=== PATIENT | female | born 1960 | race Caucasian/White ===

== ENCOUNTER 2016-10-24 09:00 | Inpatient (IN) | payer MEDICAID ==
[~2016-10-24] VITALS: Ht 165.1 cm; Wt 47.7 kg
[~2016-10-24 09:00] MED LIST: CHOL500021 OR; CLON2TAB PO; SERT25TA84 PO
[2016-10-24] MEDS ORDERED: SODIUM CHLORIDE 0.9% 1,000 ML IV ONE (10:05)
[2016-10-24] MEDS ORDERED: NALBUPHINE HCL 10 MG/1ml INJECTION IV ONE ×2 (10:15→12:00)
[2016-10-24] MEDS ORDERED: ONDANSETRON HCL 4 MG/2 ML VIAL IV ONE (10:15)
[2016-10-24 10:46] LABS: Urine Bilirubin Negative (Negative); Urine Blood TRACE /uL (Negative); Urine Color Yellow (Yellow); Urine Glucose Normal (Normal); Urine Ketone Negative (Negative); Urine Mucus FEW (None Seen); Urine Nitrite Negative (Negative); Urine RBC 2 /hpf (0 - 4); Urine Squamous Epithelial Cell MOD /hpf (<5); Urine pH 5.5 (5.0-8.0)
[2016-10-24 11:15] LABS: Hematocrit 39.4 % (36.0-46.0); Hemoglobin 13.4 g/dL (12.2-16.2); Mean Corpuscular Hemoglobin 30.8 pg (28.0-32.0); Mean Corpuscular Hgb Conc. 33.9 g/dL (32.0-36.0); Mean Corpuscular Volume 90.8 fL (80.0-100.0); Mean Platelet Volume 7.6 fL (7.4-10.4); Platelet Count (auto) 259 10^3/uL (140-450); Red Cell Distribution Width 16.5 % (11.6-16.0); SUSPECT VIEW TRANSMISSION; White Blood Cell 5.4 10^3/uL (4.4-10.8)
[2016-10-24 11:25] LABS: Metamyelocytes % 0; Myelocytes % 0; Promyelocytes % 0; Reactive Lymphocytes 0
[2016-10-24 11:40] LABS: B-Type Natriuretic Peptide 15.1 pg/mL (0-100)
[2016-10-24 11:42] LABS: Albumin 3.1 g/dL (3.4-5.0); Alkaline Phosphatase 93 U/L (45-117); Anion Gap 10 (5-15); Aspartate Aminotransferase 20 U/L (15-37); BUN/Creatinine Ratio 13.5; Bilirubin, Total 0.3 mg/dL (0.2-1.0); Blood Urea Nitrogen 12 mg/dL (7-18); Calcium 8.5 mg/dL (8.5-10.1); Carbon Dioxide 26 mmol/L (21-32); Chloride 104 mmol/L (98-107); GFR African American 85 mL/min; GFR Non-African American 70 mL/min; Glucose 101 mg/dL (74-106); Potassium 3.3 mmol/L (3.5-5.1); Sodium 140 mmol/L (136-145); Total Protein 6.9 g/dL (6.4-8.2)
[2016-10-24 11:44] LABS: INR 0.94 (0.9-1.15); Partial Thromboplastin Time 27.7 sec (22.64-33.71); Prothrombin Time 10.1 sec (9.37-12.3)
[2016-10-24] MEDS ORDERED: LEVOFLOXACIN 500MG 100 ML IV ONE (11:45)
[2016-10-24 11:48] LABS: Temperature: 22.7 C (20.0-25.0)
[2016-10-24] MEDS ORDERED: TEMAZEPAM 15 MG CAP PO PRN (13:15)
[2016-10-24] MEDS ORDERED: ENOXAPARIN SOD 40 MG/0.4 ML SYRINGE SC ONE (13:15)
[2016-10-24] MEDS ORDERED: LORazepam 0.5 MG TAB PO PRN (13:15)
[2016-10-24] MEDS ORDERED: ACETAMINOPHEN 500 MG TAB PO PRN (13:15)
[2016-10-24] MEDS ORDERED: NITROGLYCERIN 0.4 MG SL TAB SL PRN (13:15)
[2016-10-24] MEDS ORDERED: PANTOPRAZOLE 40 MG TAB PO ONE (13:15)
[2016-10-24] MEDS ORDERED: cefTRIAXone 1GM/50ML D5W 50 ML IV ONE (13:15)
[2016-10-24] MEDS ORDERED: PROCHLORPERAZINE EDISYLATE 5 MG/ML 2ML VIAL IV PRN (13:15)
[2016-10-24 13:54] LABS: Platelet Estimate Adequate
[2016-10-24 13:56] LABS: Ovalocytes FEW
[2016-10-24] MEDS: SODIUM CHLORIDE 0.9% 1,000 ML IV SCH ×2 (14:03→23:20)
[2016-10-24] MEDS ORDERED: PROCHLORPERAZINE EDISYLATE 5 MG/ML 2ML VIAL IV ONE (14:15)
[2016-10-24 15:23] VITALS: BP 89/60
[2016-10-24 20:00] VITALS: BP 89/63
[2016-10-24 21:24] VITALS: BP 85/58
[2016-10-24 22:16] VITALS: BP 89/63
[2016-10-25] VITALS (7 sets, daily range): BP systolic 91–118; BP diastolic 60–73
[2016-10-25 06:10] LABS: Potassium 3.5 mmol/L (3.5-5.1)
[2016-10-25 06:20] LABS: BUN/Creatinine Ratio 15.1; Calcium 8.1 mg/dL (8.5-10.1); Magnesium 1.8 mg/dL (1.6-2.6)
[2016-10-25] MEDS: SODIUM CHLORIDE 0.9% 1,000 ML IV SCH ×3 (09:34→22:31)
[2016-10-25] MEDS: cefTRIAXone 1GM/50ML D5W 50 ML IV SCH (09:34)
[2016-10-25] MEDS: PANTOPRAZOLE 40 MG TAB PO SCH (09:34)
[2016-10-25] MEDS ORDERED: ENOXAPARIN SOD 40 MG/0.4 ML SYRINGE SC SCH (10:00)
[2016-10-25] MEDS: HYDROcodone-ACET 5/325MG TAB PO PRN ×2 (14:51→20:40)
[2016-10-25] MEDS ORDERED: ALBU0.084 IN (15:34)
[2016-10-25] MEDS ORDERED: IPRASOL39 NEB ×2 (15:34→15:51)
[2016-10-25] MEDS ORDERED: ALBUAER3 IN (15:51)
[2016-10-25] MEDS ORDERED: ALBU1.257 NEB (15:51)
[2016-10-25] MEDS ORDERED: LEVO500T3 PO (15:51)
[2016-10-25] MEDS: BOOST PLUS 8 ounce PO SCH ×2 (18:00→22:19)
[2016-10-25] MEDS ORDERED: predniSONE 20 MG TAB PO ONE (19:00)
[2016-10-25] MEDS ORDERED: ONDANSETRON HCL 4 MG/2 ML VIAL IV ONE (20:00)
[2016-10-26] MEDS ORDERED: predniSONE 20 MG TAB PO ONE ×2 (01:00→07:00)
[2016-10-26 05:01] VITALS: BP 99/63
[2016-10-26] MEDS: BOOST PLUS 8 ounce PO SCH ×2 (05:59→12:20)
[2016-10-26] MEDS ORDERED: diphenhdrAMINE HCL 25 MG CAP PO ONE (07:00)
[2016-10-26 08:00] VITALS: BP 114/75
[2016-10-26] MEDS ORDERED: IOHEXOL 350 MG/ML 100ML IJ ONE (08:08)
[2016-10-26 09:00] VITALS: BP 114/75
[2016-10-26] MEDS: PANTOPRAZOLE 40 MG TAB PO SCH (09:22)
[2016-10-26] MEDS: cefTRIAXone 1GM/50ML D5W 50 ML IV SCH (09:22)
[2016-10-26] MEDS ORDERED: ENO100SY SC (10:10)
[2016-10-26] MEDS ORDERED: WARF5TAB PO (10:10)
[2016-10-26] MEDS ORDERED: ENOXAPARIN SOD 60 MG/0.6 ML SYRINGE SC SCH (10:15)
[2016-10-26] MEDS ORDERED: WARFARIN SODIUM 5 MG TAB PO ONE (11:30)
[2016-10-26] MEDS ORDERED: WARFARIN SODIUM 5 MG TAB PO SCH ×2 (11:30→17:00)
[2016-10-26 11:43] VITALS: BP 114/75
[2016-10-26 12:20] LABS: INR 0.96 (0.9-1.15); Partial Thromboplastin Time 31.2 sec (22.64-33.71); Prothrombin Time 10.4 sec (9.37-12.3)
[2016-10-26 12:23] LABS: Albumin 2.9 g/dL (3.4-5.0); BUN/Creatinine Ratio 12.2; Bilirubin, Total 0.2 mg/dL (0.2-1.0); Calcium 8.6 mg/dL (8.5-10.1); Potassium 3.5 mmol/L (3.5-5.1); Total Protein 6.8 g/dL (6.4-8.2)
[2016-10-26 12:41] VITALS: BP 110/69
== END 2016-10-26 12:55 | disposition home health service (06) | DRG 136 ==
LOC: ER 09:00 → TELE 09:01 → TELE-E-ADS 14:50 → TELE-WESTW 17:28
PROVIDERS: ADMIT Internal Medicine; ATTEND Internal Medicine
DX: C34.90 Malignant neoplasm of unspecified part of unspecified bronchus or lung (principal); I44.1 Atrioventricular block, second degree; N39.0 Urinary tract infection, site not specified; J44.9 Chronic obstructive pulmonary disease, unspecified; G89.4 Chronic pain syndrome; J20.9 Acute bronchitis, unspecified; J44.0 Chronic obstructive pulmonary disease with (acute) lower respiratory infection; Z80.1 Family history of malignant neoplasm of trachea, bronchus and lung; Z82.49 Family history of ischemic heart disease and other diseases of the circulatory system; Z83.3 Family history of diabetes mellitus; Z85.118 Personal history of other malignant neoplasm of bronchus and lung; Z88.5 Allergy status to narcotic agent; Z88.8 Allergy status to other drugs, medicaments and biological substances; Z90.89 Acquired absence of other organs; Z83.49 Family history of other endocrine, nutritional and metabolic diseases; E87.6 Hypokalemia; M71.58 Other bursitis, not elsewhere classified, other site; F41.9 Anxiety disorder, unspecified; E56.9 Vitamin deficiency, unspecified; F32.9 Major depressive disorder, single episode, unspecified
CPT/HCPCS: 36415; 71250; 71275; 78582; 80048; 80053; 81001; 83735; 83880; 84484; 85007; 85027; 85379; 85610; 85652; 85730; 87086; 93005; 96365; 96367; 96372; 96375; 96376; J0696; J1642; J1956; J2405

== ENCOUNTER 2016-11-04 10:49 | Emergency (ER) | payer MEDICAID ==
[~2016-11-04] VITALS: Ht 165.1 cm; Wt 47.6 kg
[~2016-11-04 10:49] MED LIST changes: +ALBU0.084 IN; +ALBU1.257 NEB; +ALBUAER3 IN; +ENO100SY SC; +IPRASOL39 NEB; +LEVO500T3 PO; +WARF5TAB PO
[2016-11-04] MEDS ORDERED: SODIUM CHLORIDE 0.9% 1,000 ML IV ONE (12:00)
[2016-11-04 12:07] LABS: Basophils # (auto) 0 uL; Basophils % (auto) 0.3 % (0.0-2.0); DEFINITIVE VIEW TRANSMISSION; Eosinophils # (auto) 0.1 uL; Eosinophils % (auto) 1.4 % (0.0-7.0); Hematocrit 42.1 % (36.0-46.0); Hemoglobin 14.1 g/dL (12.2-16.2); Lymphocytes # (auto) 1.4 uL; Lymphocytes % (auto) 16.7 % (10.0-50.0); Mean Corpuscular Hemoglobin 30.6 pg (28.0-32.0); Mean Corpuscular Hgb Conc. 33.6 g/dL (32.0-36.0); Mean Corpuscular Volume 91.1 fL (80.0-100.0); Mean Platelet Volume 7.8 fL (7.4-10.4); Monocytes # (auto) 1.8 uL; Monocytes % (auto) 21.1 % (0.0-12.0); Neutrophils # (auto) 5.1 uL; Neutrophils % (auto) 60.5 % (37.0-80.0); Platelet Count (auto) 312 10^3/uL (140-450); Red Cell Distribution Width 16.7 % (11.6-16.0); SUSPECT VIEW TRANSMISSION; White Blood Cell 8.5 10^3/uL (4.4-10.8)
[2016-11-04] MEDS ORDERED: MORPHINE SULFATE 4 MG/ML SYRG IV ONE (12:15)
[2016-11-04] MEDS ORDERED: ONDANSETRON HCL 4 MG/2 ML VIAL IV ONE (12:15)
[2016-11-04 12:26] LABS: Albumin 3.5 g/dL (3.4-5.0); Alkaline Phosphatase 98 U/L (45-117); Anion Gap 9 (5-15); Aspartate Aminotransferase 16 U/L (15-37); Bilirubin, Total 0.6 mg/dL (0.2-1.0); Blood Urea Nitrogen 18 mg/dL (7-18); Calcium 9.4 mg/dL (8.5-10.1); Carbon Dioxide 27 mmol/L (21-32); Chloride 99 mmol/L (98-107); GFR African American 74 mL/min; GFR Non-African American 61 mL/min; Glucose 112 mg/dL (74-106); Potassium 3.9 mmol/L (3.5-5.1); Sodium 135 mmol/L (136-145); Total Protein 7.8 g/dL (6.4-8.2)
[2016-11-04] MEDS ORDERED: KETOROLAC TROMETH 30 MG/ML 1ML VIAL IV ONE (12:30)
[2016-11-04] MEDS ORDERED: diphenhdrAMINE HCL 50 MG/1 ML VL IV ONE (14:30)
[2016-11-04] MEDS ORDERED: IOHEXOL 350 MG/ML 100ML IJ ONE (14:42)
[2016-11-04] MEDS ORDERED: predniSONE 20 MG TAB PO ONE (15:15)
[2016-11-04] MEDS ORDERED: diphenhdrAMINE HCL 25 MG CAP PO ONE (15:15)
[2016-11-04 15:38] VITALS: BP 115/80
[2016-11-04] MEDS ORDERED: BEN10T GT (15:40)
[2016-11-04] MEDS ORDERED: CYCL5TAB PO (15:40)
[2016-11-04] MEDS ORDERED: RIVA20TA PO (15:40)
[2016-11-04] MEDS ORDERED: HEPARIN SODIUM (PORCINE) 5000 UNITS/ML 1ML VIAL IV ONE (16:30)
== END 2016-11-04 16:47 | disposition home or self-care (01) ==
LOC: ER 10:54
DX: C34.91 Malignant neoplasm of unspecified part of right bronchus or lung (principal); F41.9 Anxiety disorder, unspecified; J44.9 Chronic obstructive pulmonary disease, unspecified; F32.9 Major depressive disorder, single episode, unspecified
CPT/HCPCS: 36415; 71020; 80053; 84484; 85025; 93005; 94761; 96361; 96374; 96375; 99285; J1200; J1642; J1885; J2270; J2405; J7030; J7512; Q9967

== ENCOUNTER 2016-11-18 14:09 | Inpatient (IN) | payer MEDICAID ==
[~2016-11-18] VITALS: Ht 157.5 cm; Wt 54.6 kg
[~2016-11-18 14:09] MED LIST changes: +BEN10T PO; +CYCL5TAB PO; -ENO100SY SC; -LEVO500T3 PO; +RIVA20TA PO; -WARF5TAB PO
[2016-11-18 18:40] LABS: Basophils # (auto) 0 uL; Basophils % (auto) 0.2 % (0.0-2.0); Eosinophils # (auto) 0.1 uL; Eosinophils % (auto) 1.8 % (0.0-7.0); Hematocrit 37.6 % (36.0-46.0); Hemoglobin 12.8 g/dL (12.2-16.2); Lymphocytes # (auto) 1.3 uL; Lymphocytes % (auto) 16.7 % (10.0-50.0); Mean Corpuscular Hemoglobin 31.3 pg (28.0-32.0); Mean Corpuscular Volume 92.1 fL (80.0-100.0); Mean Platelet Volume 7.1 fL (7.4-10.4); Monocytes # (auto) 1.3 uL; Monocytes % (auto) 16.3 % (0.0-12.0); Neutrophils # (auto) 5.2 uL; Platelet Count (auto) 311 10^3/uL (140-450); Red Cell Distribution Width 16.1 % (11.6-16.0)
[2016-11-18 19:08] LABS: Albumin 3.3 g/dL (3.4-5.0); Alkaline Phosphatase 107 U/L (45-117); Anion Gap 7 (5-15); Aspartate Aminotransferase 19 U/L (15-37); BUN/Creatinine Ratio 18.8; Bilirubin, Total 0.6 mg/dL (0.2-1.0); Blood Urea Nitrogen 18 mg/dL (7-18); Carbon Dioxide 28 mmol/L (21-32); Chloride 101 mmol/L (98-107); GFR African American 78 mL/min; GFR Non-African American 64 mL/min; Glucose 86 mg/dL (74-106); Magnesium 2.3 mg/dL (1.6-2.6); Potassium 4.1 mmol/L (3.5-5.1); Sodium 136 mmol/L (136-145); Total Protein 7.7 g/dL (6.4-8.2)
[2016-11-18] MEDS ORDERED: KETOROLAC TROMETH 30 MG/ML 1ML VIAL IV ONE (21:15)
[2016-11-18] MEDS ORDERED: IPRATROPIUM BROM 0.5 MG/2.5ML INH SOL NEB PRN (22:00)
[2016-11-18] MEDS ORDERED: NITROGLYCERIN 0.4 MG SL TAB SL PRN (22:00)
[2016-11-18] MEDS ORDERED: TEMAZEPAM 15 MG CAP PO PRN (22:00)
[2016-11-18] MEDS ORDERED: ONDANSETRON HCL 4 MG/2 ML VIAL IV PRN (22:00)
[2016-11-18] MEDS ORDERED: NALBUPHINE HCL 10 MG/1ml INJECTION IV ONE (22:00)
[2016-11-18] MEDS ORDERED: CHOLECALCIFEROL 50000 UNIT OR SCH (22:00)
[2016-11-18] MEDS ORDERED: DOCUSATE SOD 100 MG CAP PO PRN (22:00)
[2016-11-18] MEDS: SODIUM CHLORIDE 0.9% 1,000 ML IV SCH (22:28)
[2016-11-18 23:00] VITALS: BP 91/63
[2016-11-18 23:56] VITALS: BP 91/63
[2016-11-19] VITALS (8 sets, daily range): BP systolic 80–91; BP diastolic 50–63
[2016-11-19] MEDS: traMADol HCL 50 MG TAB PO PRN ×3 (03:27→13:19)
[2016-11-19] MEDS ORDERED: RIV15T PO (06:28)
[2016-11-19] MEDS ORDERED: GABA300C8 PO (06:31)
[2016-11-19] MEDS: SERTRALINE HCL 50 MG TAB PO SCH (09:25)
[2016-11-19] MEDS ORDERED: PATIENTS OWN MEDICATION (Rivaroxaban (Xarelto) 1 TAB) PO SCH ×2 (10:00)
[2016-11-19] MEDS ORDERED: SERTRALINE HCL 50 MG TAB PO SCH (11:00)
[2016-11-19] MEDS: clonazePAM 0.5 MG TAB PO SCH ×3 (13:19→22:01)
[2016-11-19] MEDS ORDERED: PROMETHAZINE HCL 25 MG/ML 1ML IV PRN (13:30)
[2016-11-19] MEDS: IPRATROPIUM BROM 0.5 MG/2.5ML INH SOL NEB SCH ×2 (14:28→19:02)
[2016-11-19] MEDS: ALBUTEROL SULF 2.5 MG/0.5ML(0.5%) NEB SOLN NEB SCH ×2 (14:28→19:02)
[2016-11-19] MEDS: SODIUM CHLORIDE 0.9% 1,000 ML IV SCH (14:31)
[2016-11-19] MEDS: HYDROcodone-ACET 5/325MG TAB PO PRN (17:34)
[2016-11-19] MEDS ORDERED: RIVAROXABAN 20 MG TAB PO SCH (18:00)
[2016-11-19] MEDS ORDERED: MORPHINE SULF 15mg ER tab PO SCH (22:00)
[2016-11-20 05:00] VITALS: BP 84/53
[2016-11-20 06:22] LABS: Urine Bilirubin Negative (Negative); Urine Blood Negative /uL (Negative); Urine Color Yellow (Yellow); Urine Glucose Normal (Normal); Urine Ketone Negative (Negative); Urine Nitrite Negative (Negative); Urine RBC 1 /hpf (0 - 4); Urine Squamous Epithelial Cell FEW /hpf (<5); Urine Urobilinogen Normal (Negative)
[2016-11-20] MEDS: HYDROcodone-ACET 5/325MG TAB PO PRN (06:29)
[2016-11-20] MEDS: ALBUTEROL SULF 2.5 MG/0.5ML(0.5%) NEB SOLN NEB SCH ×3 (06:48→12:28)
[2016-11-20] MEDS: IPRATROPIUM BROM 0.5 MG/2.5ML INH SOL NEB SCH ×3 (06:49→12:28)
[2016-11-20 08:00] VITALS: BP 83/53
[2016-11-20] MEDS: SODIUM CHLORIDE 0.9% 1,000 ML IV SCH (08:22)
[2016-11-20 09:11] VITALS: BP 83/53
[2016-11-20] MEDS ORDERED: ERGOCALCIFEROL 50,000 UNIT(1.25MG) CAP PO SCH (10:00)
[2016-11-20] MEDS: clonazePAM 0.5 MG TAB PO SCH (10:58)
[2016-11-20] MEDS: SERTRALINE HCL 50 MG TAB PO SCH (10:59)
[2016-11-20] MEDS: traMADol HCL 50 MG TAB PO PRN (10:59)
[2016-11-20 11:36] VITALS: BP 83/53
[2016-11-20] MEDS ORDERED: NOR5T PO (12:15)
[2016-11-20] MEDS ORDERED: IBUP-781 PO (12:17)
[2016-11-20 13:00] VITALS: BP 73/47
== END 2016-11-20 15:30 | disposition home health service, planned readmission (86) | DRG 136 ==
LOC: EDBD 14:09 → ER 14:39 → TELE 14:40 → TELE-WESTW 23:00
PROVIDERS: ADMIT Emergency Medicine; ATTEND Internal Medicine
PROC: 30233N1 Transfusion of Nonautologous Red Blood Cells into Peripheral Vein, Percutaneous Approach (ICD-10-PCS; principal; 2016-11-18)
DX: C34.92 Malignant neoplasm of unspecified part of left bronchus or lung (principal); E56.9 Vitamin deficiency, unspecified; G89.4 Chronic pain syndrome; J44.9 Chronic obstructive pulmonary disease, unspecified; E27.9 Disorder of adrenal gland, unspecified; F31.9 Bipolar disorder, unspecified; Z80.1 Family history of malignant neoplasm of trachea, bronchus and lung; Z85.118 Personal history of other malignant neoplasm of bronchus and lung; Z86.711 Personal history of pulmonary embolism; Z87.891 Personal history of nicotine dependence; F41.9 Anxiety disorder, unspecified; Z88.5 Allergy status to narcotic agent; Z88.8 Allergy status to other drugs, medicaments and biological substances; Z85.9 Personal history of malignant neoplasm, unspecified; Z90.89 Acquired absence of other organs; Z23 Encounter for immunization
CPT/HCPCS: 36415; 71250; 78306; 80053; 81001; 83735; 84484; 85025; 85379; 93005; 94640; 94761; 96374; 96375; J1642; J1885; J2405

== ENCOUNTER 2016-11-30 20:31 | Emergency (ER) | payer MEDICAID ==
[~2016-11-30] VITALS: Ht 162.6 cm; Wt 47.2 kg
[~2016-11-30 20:31] MED LIST changes: -ALBU0.084 IN; -ALBU1.257 NEB; -BEN10T PO; +GABA-497 PO; +HYDR-4663 PO; +IBUP-781 PO; +RIV15T PO; -RIVA20TA PO
[2016-11-30 22:22] LABS: Basophils # (auto) 0 uL; Basophils % (auto) 0.3 % (0.0-2.0); Eosinophils # (auto) 0.1 uL; Eosinophils % (auto) 1.1 % (0.0-7.0); Hematocrit 37.1 % (36.0-46.0); Hemoglobin 12.6 g/dL (12.2-16.2); Lymphocytes # (auto) 1.5 uL; Lymphocytes % (auto) 19.2 % (10.0-50.0); Mean Corpuscular Hemoglobin 31.7 pg (28.0-32.0); Mean Corpuscular Hgb Conc. 34.1 g/dL (32.0-36.0); Mean Corpuscular Volume 92.9 fL (80.0-100.0); Mean Platelet Volume 7.7 fL (7.4-10.4); Neutrophils # (auto) 5.3 uL; Neutrophils % (auto) 66.4 % (37.0-80.0); Platelet Count (auto) 349 10^3/uL (140-450); Red Cell Distribution Width 15.6 % (11.6-16.0); White Blood Cell 7.9 10^3/uL (4.4-10.8)
[2016-11-30 22:29] LABS: Chloride 105 mmol/L (98-107); Potassium 4.2 mmol/L (3.5-5.1); Sodium 143 mmol/L (136-145)
[2016-11-30 22:31] LABS: Partial Thromboplastin Time 48.1 sec (22.64-33.71)
[2016-11-30 22:34] LABS: Albumin 3.4 g/dL (3.4-5.0); Anion Gap 14 (5-15); Aspartate Aminotransferase 18 U/L (15-37); BUN/Creatinine Ratio 14.4; Blood Urea Nitrogen 16 mg/dL (7-18); Carbon Dioxide 24 mmol/L (21-32); GFR African American 66 mL/min; GFR Non-African American 54 mL/min; Glucose 118 mg/dL (74-106); Magnesium 1.8 mg/dL (1.6-2.6)
[2016-11-30 22:38] LABS: B-Type Natriuretic Peptide 26.5 pg/mL (0-100)
[2016-11-30 22:39] LABS: Alkaline Phosphatase 107 U/L (45-117); Bilirubin, Total 0.7 mg/dL (0.2-1.0); Total Protein 7.9 g/dL (6.4-8.2)
[2016-11-30 22:51] LABS: INR 1.38 (0.9-1.15); Prothrombin Time 15.1 sec (9.37-12.3)
[2016-12-01] MEDS ORDERED: HYDROcodone-ACET 10/325MG TAB PO ONE (00:45)
[2016-12-01 01:30] VITALS: BP 107/76
== END 2016-12-01 02:00 | disposition home or self-care (01) ==
LOC: ER 20:32
DX: C34.91 Malignant neoplasm of unspecified part of right bronchus or lung (principal); G89.4 Chronic pain syndrome; J44.9 Chronic obstructive pulmonary disease, unspecified; Z90.89 Acquired absence of other organs; Z87.891 Personal history of nicotine dependence; Z88.6 Allergy status to analgesic agent; Z91.041 Radiographic dye allergy status
CPT/HCPCS: 36415; 71250; 80053; 83735; 83880; 84484; 85025; 85379; 85610; 85730; 93005; 93970

== ENCOUNTER 2016-12-02 21:09 | Emergency (ER) | payer MEDICAID ==
[~2016-12-02] VITALS: Ht 165.1 cm; Wt 69.9 kg
[2016-12-02 21:52] LABS: Basophils # (auto) 0 uL; Basophils % (auto) 0.5 % (0.0-2.0); Eosinophils # (auto) 0.2 uL; Eosinophils % (auto) 2.2 % (0.0-7.0); Hematocrit 36.3 % (36.0-46.0); Hemoglobin 12.4 g/dL (12.2-16.2); Lymphocytes # (auto) 1.5 uL; Lymphocytes % (auto) 19.9 % (10.0-50.0); Mean Corpuscular Hemoglobin 31.6 pg (28.0-32.0); Mean Corpuscular Hgb Conc. 34.1 g/dL (32.0-36.0); Mean Corpuscular Volume 92.7 fL (80.0-100.0); Mean Platelet Volume 7.2 fL (7.4-10.4); Monocytes # (auto) 1.2 uL; Neutrophils # (auto) 4.5 uL; Neutrophils % (auto) 61.4 % (37.0-80.0); Platelet Count (auto) 357 10^3/uL (140-450); Red Cell Distribution Width 15.5 % (11.6-16.0); White Blood Cell 7.4 10^3/uL (4.4-10.8)
[2016-12-02 22:13] LABS: Partial Thromboplastin Time 40.1 sec (22.64-33.71)
[2016-12-02 22:33] LABS: Albumin 3.6 g/dL (3.4-5.0); BUN/Creatinine Ratio 17.5; Bilirubin, Total 0.5 mg/dL (0.2-1.0); Calcium 9.2 mg/dL (8.5-10.1); Potassium 4.1 mmol/L (3.5-5.1); Total Protein 7.7 g/dL (6.4-8.2)
[2016-12-02 22:37] LABS: INR 1.22 (0.9-1.15); Prothrombin Time 13.3 sec (9.37-12.3)
[2016-12-03 01:10] LABS: Urine Bilirubin Negative (Negative); Urine Blood 1+ /uL (Negative); Urine Color Yellow (Yellow); Urine Glucose Normal (Normal); Urine Ketone Negative (Negative); Urine Mucus FEW (None Seen); Urine Nitrite Negative (Negative); Urine RBC 5 /hpf (0 - 4); Urine Squamous Epithelial Cell MOD /hpf (<5)
[2016-12-03] MEDS ORDERED: HYDROmorphone HCL 2 MG/ML VL IV ONE (03:30)
[2016-12-03] MEDS ORDERED: ONDANSETRON HCL 4 MG/2 ML VIAL IV ONE (03:30)
[2016-12-03] MEDS ORDERED: FAMOTIDINE (10MG/ML) 2ML VL IV ONE (03:45)
[2016-12-03] MEDS ORDERED: diphenhdrAMINE HCL 50 MG/1 ML VL IV ONE ×2 (03:45→05:45)
[2016-12-03] MEDS ORDERED: methylPREDNISolone SOD SUCC 125 MG/2 ML VL ONE (05:30)
[2016-12-03 05:33] VITALS: BP 94/58
[2016-12-03] MEDS ORDERED: methylPREDNISolone SOD SUCC 125 MG/2 ML VL IV ONE (05:45)
== END 2016-12-03 06:10 | disposition home or self-care (01) ==
LOC: ER 21:16
DX: R10.9 Unspecified abdominal pain (principal); R07.89 Other chest pain; J44.9 Chronic obstructive pulmonary disease, unspecified; Z90.89 Acquired absence of other organs; Z87.891 Personal history of nicotine dependence; Z88.5 Allergy status to narcotic agent; Z88.8 Allergy status to other drugs, medicaments and biological substances; Z85.118 Personal history of other malignant neoplasm of bronchus and lung
CPT/HCPCS: 36415; 71010; 80053; 81001; 82150; 83690; 85025; 85610; 85730; 96374; 96375; 96376; 99285; J1170; J1200; J2405; J2930; J3490

== ENCOUNTER 2016-12-13 09:17 | Emergency (ER) | payer MEDICAID ==
[~2016-12-13] VITALS: Ht 165.1 cm; Wt 47.2 kg
[2016-12-13] MEDS ORDERED: HYDROmorphone HCL 2 MG/ML VL IM ONE (09:45)
[2016-12-13] MEDS ORDERED: ONDANSETRON HCL 4 MG/2 ML VIAL IM ONE (09:45)
[2016-12-13 09:56] LABS: Basophils # (auto) 0 uL; Basophils % (auto) 0.4 % (0.0-2.0); CONDITION AutoValidated; Eosinophils # (auto) 0.1 uL; Eosinophils % (auto) 1.4 % (0.0-7.0); Hematocrit 33.4 % (36.0-46.0); Hemoglobin 11.5 g/dL (12.2-16.2); Lymphocytes # (auto) 1.1 uL; Lymphocytes % (auto) 15.4 % (10.0-50.0); Mean Corpuscular Hemoglobin 32.3 pg (28.0-32.0); Mean Corpuscular Hgb Conc. 34.5 g/dL (32.0-36.0); Mean Corpuscular Volume 93.5 fL (80.0-100.0); Mean Platelet Volume 6.5 fL (7.4-10.4); Monocytes # (auto) 1.3 uL; Monocytes % (auto) 17.7 % (0.0-12.0); Neutrophils # (auto) 4.6 uL; Neutrophils % (auto) 65.1 % (37.0-80.0); Platelet Count (auto) 292 10^3/uL (140-450); Red Cell Distribution Width 14.8 % (11.6-16.0); White Blood Cell 7.1 10^3/uL (4.4-10.8)
[2016-12-13] MEDS ORDERED: KETOROLAC TROMETH 60MG/2ML VIAL IM ONE (10:15)
[2016-12-13 10:32] LABS: Albumin 3.3 g/dL (3.4-5.0); BUN/Creatinine Ratio 13.3; Bilirubin, Total 0.8 mg/dL (0.2-1.0); Calcium 9.2 mg/dL (8.5-10.1); Magnesium 1.9 mg/dL (1.6-2.6); Potassium 3.8 mmol/L (3.5-5.1); Total Protein 7.2 g/dL (6.4-8.2)
[2016-12-13] MEDS ORDERED: diphenhdrAMINE HCL 50 MG/1 ML VL IV ONE (11:30)
[2016-12-13] MEDS ORDERED: HYDROmorphone HCL 2 MG/ML VL IV ONE (11:45)
[2016-12-13 13:21] VITALS: BP 105/78
== END 2016-12-13 13:29 | disposition home or self-care (01) ==
LOC: ER 09:17
DX: G89.4 Chronic pain syndrome (principal); Z85.118 Personal history of other malignant neoplasm of bronchus and lung; J44.9 Chronic obstructive pulmonary disease, unspecified; Z92.21 Personal history of antineoplastic chemotherapy; Z87.891 Personal history of nicotine dependence; Z79.899 Other long term (current) drug therapy; Z88.6 Allergy status to analgesic agent; Z91.041 Radiographic dye allergy status
CPT/HCPCS: 36415; 71020; 80053; 83735; 84484; 85025; 93005; 96372; 96374; 96375; 99285; J1170; J1200; J1885; J2405

== ENCOUNTER 2017-01-17 01:19 | Inpatient (IN) | payer MEDICAID ==
[~2017-01-17] VITALS: Ht 165.1 cm; Wt 46.1 kg
[2017-01-17] VITALS (8 sets, daily range): BP systolic 91–115; BP diastolic 71–73
[2017-01-17 02:08] LABS: Basophils # (auto) 0 uL; Basophils % (auto) 0.1 % (0.0-2.0); CONDITION Y; Eosinophils # (auto) 0 uL; Eosinophils % (auto) 0.2 % (0.0-7.0); Hematocrit 32.3 % (36.0-46.0); Hemoglobin 10.6 g/dL (12.2-16.2); Lymphocytes # (auto) 1.3 uL; Lymphocytes % (auto) 15.1 % (10.0-50.0); Mean Corpuscular Hemoglobin 30.9 pg (28.0-32.0); Mean Corpuscular Hgb Conc. 32.9 g/dL (32.0-36.0); Mean Corpuscular Volume 93.9 fL (80.0-100.0); Mean Platelet Volume 7.8 fL (7.4-10.4); Monocytes # (auto) 1.3 uL; Monocytes % (auto) 14.9 % (0.0-12.0); Neutrophils # (auto) 6.2 uL; Neutrophils % (auto) 69.7 % (37.0-80.0); Platelet Count (auto) 286 10^3/uL (140-450); Red Cell Distribution Width 14.7 % (11.6-16.0); White Blood Cell 8.9 10^3/uL (4.4-10.8)
[2017-01-17 02:23] LABS: Albumin 4.5 g/dL (3.4-5.0); BUN/Creatinine Ratio 29.9; Potassium 3.1 mmol/L (3.5-5.1)
[2017-01-17 02:26] LABS: Bilirubin, Total 0.8 mg/dL (0.2-1.0); Total Protein 6.8 g/dL (6.4-8.2)
[2017-01-17 03:03] LABS: Urine RBC None Seen /hpf (0 - 4)
[2017-01-17 03:13] LABS: Urine Bilirubin Negative (Negative); Urine Blood Negative /uL (Negative); Urine Color Yellow (Yellow); Urine Glucose Normal (Normal); Urine Ketone Negative (Negative); Urine Nitrite Negative (Negative); Urine Squamous Epithelial Cell FEW /hpf (<5); Urine Urobilinogen Normal (Negative); Urine pH 6.5 (5.0-8.0)
[2017-01-17] MEDS ORDERED: KETOROLAC TROMETH 30 MG/ML 1ML VIAL IV ONE (03:15)
[2017-01-17] MEDS ORDERED: POTASSIUM CHL 20MEQ/100ML 100 ML IV ONE (05:45)
[2017-01-17] MEDS ORDERED: ONDANSETRON HCL 4 MG/2 ML VIAL IV PRN (07:15)
[2017-01-17] MEDS ORDERED: IPRATROPIUM BROM 0.5 MG/2.5ML INH SOL NEB PRN (07:15)
[2017-01-17] MEDS ORDERED: MORPHINE SULF INJ 2 MG/ML SYRINGE 1ML IV PRN (07:15)
[2017-01-17] MEDS ORDERED: NITROGLYCERIN 0.4 MG SL TAB SL PRN (07:15)
[2017-01-17] MEDS ORDERED: HYDROcodone-ACET 5/325MG TAB PO PRN (07:15)
[2017-01-17] MEDS ORDERED: TEMAZEPAM 15 MG CAP PO PRN (07:15)
[2017-01-17] MEDS ORDERED: ATORVASTATIN 20 MG TAB PO ONE (07:15)
[2017-01-17] MEDS ORDERED: ACETAMINOPHEN 325 MG TAB PO PRN (07:15)
[2017-01-17] MEDS ORDERED: ALBUTEROL SULF 2.5 MG/0.5ML(0.5%) NEB SOLN NEB PRN (07:15)
[2017-01-17 08:26] LABS: Cholesterol 123 mg/dL (< 200); HDL Cholesterol 35 mg/dL (40-59); LDL Cholesterol 66 mg/dL (< 100); Triglycerides 210 mg/dL (< 150)
[2017-01-17 08:31] LABS: INR 1.16 (0.9-1.15); Partial Thromboplastin Time 30.1 sec (22.64-33.71)
[2017-01-17 08:40] LABS: Prothrombin Time 12.7 sec (9.37-12.3)
[2017-01-17] MEDS ORDERED: clonazePAM 0.5 MG TAB PO SCH (10:00)
[2017-01-17] MEDS ORDERED: ASPirin 81 mg TAB PO SCH (10:00)
[2017-01-17] MEDS ORDERED: FAMOTIDINE 20 MG TAB PO SCH (10:00)
[2017-01-17] MEDS ORDERED: LORazepam 2MG/ML-1ML VIAL IV ONE (11:45)
[2017-01-17] MEDS ORDERED: IBUP-781 PO (13:37)
[2017-01-17] MEDS ORDERED: HYDR-4663 PO (13:37)
[2017-01-17] MEDS ORDERED: LEVETIRACETAM 500 MG TAB PO SCH (15:30)
[2017-01-17] MEDS ORDERED: LEVETIRACETAM 500 MG/5ML ORAL SOLN UD PO SCH (16:15)
[2017-01-17] MEDS ORDERED: KEP500T PO (17:01)
[2017-01-17] MEDS ORDERED: RIVAROXABAN 15 MG TAB PO SCH (18:00)
[2017-01-17] MEDS ORDERED: ATORVASTATIN 20 MG TAB PO SCH (22:00)
[2017-01-17] MEDS ORDERED: HEPARIN 1,000 UNITS/ml 1ML VIAL ONE (22:13)
== END 2017-01-17 21:45 | disposition home or self-care (01) | DRG 53 ==
LOC: EDBD 01:19 → EDUNIT# 01:19 → ER 01:35 → TELE 01:36 → TELE-E-ADS 08:05 → TELE-WESTW 12:17
PROVIDERS: ADMIT Nurse Practitioner; ATTEND Internal Medicine
DX: G40.209 Localization-related (focal) (partial) symptomatic epilepsy and epileptic syndromes with complex partial seizures, not intractable, without status epilepticus (principal); C34.90 Malignant neoplasm of unspecified part of unspecified bronchus or lung; Z99.81 Dependence on supplemental oxygen; G45.9 Transient cerebral ischemic attack, unspecified; S02.40CA Maxillary fracture, right side, initial encounter for closed fracture; Z71.89 Other specified counseling; E87.6 Hypokalemia; J34.2 Deviated nasal septum; J44.9 Chronic obstructive pulmonary disease, unspecified; S00.83XA Contusion of other part of head, initial encounter; Z80.1 Family history of malignant neoplasm of trachea, bronchus and lung; Z82.49 Family history of ischemic heart disease and other diseases of the circulatory system; Z83.3 Family history of diabetes mellitus; Z85.118 Personal history of other malignant neoplasm of bronchus and lung; Z86.711 Personal history of pulmonary embolism; F32.9 Major depressive disorder, single episode, unspecified; F41.9 Anxiety disorder, unspecified; Z88.5 Allergy status to narcotic agent; Z88.8 Allergy status to other drugs, medicaments and biological substances; Z91.041 Radiographic dye allergy status; X58.XXXA Exposure to other specified factors, initial encounter; Y93.89 Activity, other specified; Y92.89 Other specified places as the place of occurrence of the external cause; Y99.8 Other external cause status; E55.9 Vitamin D deficiency, unspecified
CPT/HCPCS: 36415; 70450; 70486; 70551; 80053; 80061; 80307; 81001; 82962; 85025; 85610; 85730; 93005; 93886; 94640; 95819; 96361; 96374; J1885; J3480

== ENCOUNTER 2017-03-17 09:00 | Emergency (ER) | payer MEDICAID ==
[~2017-03-17] VITALS: Ht 175.3 cm; Wt 47.6 kg
[~2017-03-17 09:00] MED LIST changes: +KEP500T PO
[2017-03-17 09:47] LABS: Basophils # (auto) 0 uL; Basophils % (auto) 0.4 % (0.0-2.0); CONDITION Y; Eosinophils # (auto) 0.2 uL; Eosinophils % (auto) 2.9 % (0.0-7.0); Hemoglobin 9.7 g/dL (12.2-16.2); Lymphocytes # (auto) 1.2 uL; Lymphocytes % (auto) 19.5 % (10.0-50.0); Mean Corpuscular Hemoglobin 30.3 pg (28.0-32.0); Mean Corpuscular Hgb Conc. 33.5 g/dL (32.0-36.0); Mean Corpuscular Volume 90.3 fL (80.0-100.0); Mean Platelet Volume 7.6 fL (6.9-10.8); Monocytes # (auto) 0.8 uL; Monocytes % (auto) 14.2 % (0.0-12.0); Neutrophils # (auto) 3.7 uL; Platelet Count (auto) 323 10^3/uL (140-450); Red Cell Distribution Width 14.4 % (11.8-14.3); White Blood Cell 5.9 10^3/uL (4.4-10.8)
[2017-03-17] MEDS ORDERED: NALBUPHINE HCL 10 MG/1ml INJECTION IV ONE (10:00)
[2017-03-17] MEDS ORDERED: PROMETHAZINE HCL 25 MG/ML 1ML IV ONE ×2 (10:00→11:45)
[2017-03-17] MEDS ORDERED: LORazepam 2MG/ML-1ML VIAL IV ONE ×2 (10:00→11:45)
[2017-03-17 10:29] LABS: Albumin 2.8 g/dL (3.4-5.0); Alkaline Phosphatase 177 U/L (45-117); Amylase 14 U/L (25-115); Anion Gap 7 (5-15); Aspartate Aminotransferase 21 U/L (15-37); BUN/Creatinine Ratio 20.3; Bilirubin, Total 0.4 mg/dL (0.2-1.0); Blood Urea Nitrogen 15 mg/dL (7-18); Calcium 9.1 mg/dL (8.5-10.1); Carbon Dioxide 29 mmol/L (21-32); Chloride 101 mmol/L (98-107); GFR African American 105 mL/min; GFR Non-African American 87 mL/min; Glucose 95 mg/dL (74-106); Magnesium 1.9 mg/dL (1.6-2.6); Potassium 4.1 mmol/L (3.5-5.1); Sodium 137 mmol/L (136-145)
[2017-03-17 13:06] LABS: Urine Bilirubin Negative (Negative); Urine Blood 1+ /uL (Negative); Urine Color Yellow (Yellow); Urine Glucose Normal (Normal); Urine Ketone Negative (Negative); Urine Mucus FEW (None Seen); Urine Nitrite Negative (Negative); Urine RBC 17 /hpf (0 - 4); Urine Squamous Epithelial Cell MOD /hpf (<5)
[2017-03-17 13:30] VITALS: BP 111/72
== END 2017-03-17 14:23 | disposition home or self-care (01) ==
LOC: EDUNIT# 09:00 → ER 09:00
DX: C34.91 Malignant neoplasm of unspecified part of right bronchus or lung (principal); D64.9 Anemia, unspecified; J44.9 Chronic obstructive pulmonary disease, unspecified; Z90.89 Acquired absence of other organs; Z87.891 Personal history of nicotine dependence; Z79.899 Other long term (current) drug therapy; Z88.6 Allergy status to analgesic agent; Z88.8 Allergy status to other drugs, medicaments and biological substances; Z91.041 Radiographic dye allergy status; Z88.1 Allergy status to other antibiotic agents
CPT/HCPCS: 36415; 70450; 74176; 80053; 81001; 82150; 83690; 83735; 84484; 85025; 93005; 96374; 96375; 96376; 99285; J2060; J2300; J2550